=== PATIENT | female | born 1935 | race Caucasian/White ===

== ENCOUNTER 2017-03-17 15:59 | Emergency (ER) | payer MEDICARE ==
[~2017-03-17 15:59] MED LIST: ASCORBIC ACID500 MG PO; ASPIRIN CHEWABL81 MG PO; CRANBERRY200 MG PO; HCTZ12.5 MG PO; IMDUR 30MG TABL30 MG PO; LOVAZA1 GM PO; PLAVIX75 MG PO; REQUIP0.25 MG PO; TOPROL XL 50 MG50 MG PO; VITAMIN D1000 UNI1 PO; WELCHOL625 MG PO
== END 2017-03-17 18:20 | disposition home or self-care (01) ==
LOC: FER 15:59
DX: R04.0 Epistaxis (principal); Z87.898 Personal history of other specified conditions
CPT/HCPCS: 99283